=== PATIENT | male | born 1980 | race Caucasian/White ===

== ENCOUNTER 2022-03-27 05:48 | Emergency (ER) | payer SELFPAY ==
[~2022-03-27] VITALS: Ht 175.3 cm; Wt 90.9 kg
[2022-03-27 05:50] VITALS: BP 147/101
[2022-03-27] MEDS ORDERED: METO37.5 PO (06:04)
[2022-03-27] MEDS ORDERED: VALIUM PR (06:04)
[2022-03-27] MEDS ORDERED: METO50TA7 PO (06:04)
[2022-03-27] MEDS ORDERED: SENN-85 PO (06:04)
[2022-03-27] MEDS ORDERED: FLOM0.4C39 PO (06:04)
[2022-03-27] MEDS ORDERED: TROS60CA2 PO (06:04)
[2022-03-27] MEDS ORDERED: PHEN-501 PO (06:04)
[2022-03-27] MEDS ORDERED: LIDO5DIS41 TOP (06:04)
[2022-03-27] MEDS ORDERED: OMEP40CA5 PO (06:04)
[2022-03-27] MEDS ORDERED: GLYD10GE EX (06:04)
[2022-03-27] MEDS ORDERED: DOCU100C17 PO (06:04)
[2022-03-27] MEDS ORDERED: ASPI81TA26 PO (06:04)
[2022-03-27] MEDS ORDERED: NYST1POW9 TOP (06:04)
[2022-03-27] MEDS ORDERED: GABA-282 PO (06:04)
[2022-03-27] MEDS ORDERED: DITR5TAB PO (06:04)
[2022-03-27] MEDS ORDERED: ACET-683 PO (06:16)
[2022-03-27] MEDS ORDERED: LIDOCAINE 5% (LIDODERM) PATCH TD ONE (08:25)
[2022-03-27] MEDS ORDERED: diazePAM 10MG/2ML SYRINGE (J3360 PER 5MG) IV ONE (08:25)
[2022-03-27] MEDS ORDERED: ACETAMINOPHEN 500 MG TAB PO ONE (08:25)
[2022-03-27 08:39] LABS: BILIRUBIN, URINE MANUAL OBSCURED (NEGATIVE); GLUCOSE, URINE (UA) MANUAL NEGATIVE (NEGATIVE); KETONE, URINE MANUAL OBSCURED mg/dL (NEGATIVE); UROBILINOGEN, URINE MANUAL OBSCURED mg/dl (NORMAL)
[2022-03-27 08:49] LABS: RBC, URINE NONE SEEN /hpf (0-3)
[2022-03-27 08:50] LABS: AMORPHOUS SEDIMENT, URINE SMALL AMOUNT (NEGATIVE); BACTERIA, URINE SMALL AMOUNT; HYALINE CAST, URINE NONE SEEN /lpf (0-1); SQUAMOUS EPITHELIAL CELL URINE SMALL AMOUNT /hpf (SMALL AMT)
[2022-03-27 09:23] LABS: ALBUMIN 4.2 GM/DL (3.2-5.2); ALT/SGPT 29 U/L (12-78); BILIRUBIN,DIRECT 0.1 MG/DL (0.0-0.2); BILIRUBIN,TOTAL 0.6 MG/DL (0.2-1.0); BLOOD UREA NITROGEN 7 MG/DL (7-18); CALCIUM LEVEL 9.3 MG/DL (8.5-10.1); CARBON DIOXIDE LEVEL 24 MEQ/L (21-32); CHLORIDE LEVEL 111 MEQ/L (98-107); CREATININE FOR GFR 1.04 MG/DL (0.70-1.30); GLOMERULAR FILTRATION RATE > 60.0 (>60); GLUCOSE, FASTING 116 MG/DL (70-100); LIPASE 91 U/L (73-393); SODIUM LEVEL 142 MEQ/L (136-145); TOTAL PROTEIN 7.4 GM/DL (6.4-8.2)
[2022-03-27 09:36] LABS: BASO % 0.8 % (0.0-1.0); EOS # 0.1 10^3/uL (0.0-0.5); EOS % 1.4 % (0.0-3.0); HEMATOCRIT 42.6 % (42.0-52.0); HEMOGLOBIN 14.1 g/dl (13.5-17.5); LYMPH # 1.1 10^3/uL (1.5-5.0); LYMPH % 29.3 % (24.0-44.0); MEAN CORPUSCULAR HEMOGLOBIN 29.4 pg (27.0-33.0); MEAN CORPUSCULAR HGB CONC 33.1 g/dl (32.0-36.5); MEAN CORPUSCULAR VOLUME 88.9 fl (80.0-96.0); MONO # 0.3 10^3/uL (0.0-0.8); MONO % 6.8 % (2.0-8.0); NEUTROPHILS # 2.3 10^3/uL (1.5-8.5); NEUTROPHILS % 61.4 % (36.0-66.0); PLATELET COUNT, AUTOMATED 221 10^3/uL (150-450); RED BLOOD COUNT 4.79 10^6/uL (4.30-6.10); WHITE BLOOD COUNT 3.7 10^3/uL (4.0-10.0)
[2022-03-27 09:55] LABS: ERYTHROCYTE SEDIMENTATION RATE 6 mm/hr (0-15)
[2022-03-27 10:07] LABS: MB/CK RELATIVE INDEX 1.05 (< OR =4)
[2022-03-27] MEDS ORDERED: **NOTE PATIENT COMMENT** MISC XX SCH (21:00)
== END 2022-03-27 11:10 | disposition home or self-care (01) ==
LOC: M ED 05:48
DX: R07.9 Chest pain, unspecified (principal); M54.2 Cervicalgia; I45.10 Unspecified right bundle-branch block; I10 Essential (primary) hypertension; K21.9 Gastro-esophageal reflux disease without esophagitis; Z87.442 Personal history of urinary calculi; F12.10 Cannabis abuse, uncomplicated; Z79.899 Other long term (current) drug therapy; Z79.891 Long term (current) use of opiate analgesic
CPT/HCPCS: 71046; 80048; 80076; 81000; 81015; 82550; 82553; 83690; 84484; 85025; 85652; 86140; 87088; 87186; 93005; 96374; 99284; J3360